=== PATIENT | female | born 1975 | race Two or more races ===

== ENCOUNTER 2021-06-17 09:24 | Emergency (ER) | payer OTHER ==
[2021-06-17 09:44] VITALS: BP 136/85; PULSE 79; TEMP 97.8; BMI 28.3
[2021-06-17] MEDS ORDERED: ACETAMINOPHEN 325 MG TABLET (FP) PO ONE (09:49)
[2021-06-17] MEDS ORDERED: LIDOCAINE 5% TOPICAL PATCH TP ONE (09:57)
[2021-06-17] MEDS ORDERED: ACETAMINOPHEN 325 MG TABLET (FP) ONE (10:17)
[2021-06-17] MEDS ORDERED: LIDOCAINE 5% TOPICAL PATCH ONE (10:18)
[2021-06-17] MEDS ORDERED: KETOROLAC TROMETHAMINE 30 MG/1 ML VIAL IM ONE (12:04)
[2021-06-17] MEDS ORDERED: KETOROLAC TROMETHAMINE 30 MG/1 ML VIAL ONE (12:16)
[2021-06-17] MEDS ORDERED: LIDOCAINE PATCH REMOVAL MC SCH (22:00)
== END 2021-06-17 13:17 | disposition home or self-care (01) ==
LOC: JER 09:24
PROC: 3E0233Z Introduction of Anti-inflammatory into Muscle, Percutaneous Approach (ICD-10-PCS; principal; 2021-06-17)
DX: S00.33XA Contusion of nose, initial encounter (principal); V79.50XA Passenger on bus injured in collision with unspecified motor vehicles in traffic accident, initial encounter
CPT/HCPCS: 70450-TC; 70486-TC; 72125-TC; 99285-25

== ENCOUNTER 2021-06-20 19:16 | Emergency (ER) | payer OTHER ==
[2021-06-20 19:43] VITALS: BP 147/69; PULSE 63; TEMP 97.8; BMI 32.3
[2021-06-20] MEDS ORDERED: KETOROLAC TROMETHAMINE 60 MG/2 ML VIAL IM ONE (22:04)
[2021-06-20] MEDS ORDERED: LIDOCAINE 5% TOPICAL PATCH TP ONE (22:04)
[2021-06-20] MEDS ORDERED: METHOCARBAMOL 500 MG TABLET PO ONE (22:05)
[2021-06-20] MEDS ORDERED: METHOCARBAMOL 500 MG TABLET ONE (22:07)
[2021-06-20] MEDS ORDERED: LIDOCAINE 5% TOPICAL PATCH ONE (22:07)
[2021-06-20] MEDS ORDERED: KETOROLAC TROMETHAMINE 30 MG/1 ML VIAL ONE (22:07)
== END 2021-06-21 00:06 | disposition home or self-care (01) ==
LOC: JERFT 19:16 → JER 19:16 → JERFT 06-21 00:06
PROC: 3E023GC Introduction of Other Therapeutic Substance into Muscle, Percutaneous Approach (ICD-10-PCS; principal; 2021-06-20)
DX: M54.6 Pain in thoracic spine (principal)
CPT/HCPCS: 72128-TC; 84703; 99284-25

== ENCOUNTER 2022-11-04 04:42 | Emergency (ER) | payer OTHER ==
[2022-11-04 04:57] VITALS: TEMP 97.6; BMI 33.2
[2022-11-04] MEDS ORDERED: ACETAMINOPHEN 1000 MG/100 ML BAG IVPB ONE (05:40)
[2022-11-04] MEDS ORDERED: METOCLOPRAMIDE HCL INJECTION 10 MG/2 ML VIAL IVPB ONE (06:03)
[2022-11-04] MEDS ORDERED: SODIUM CHLORIDE 0.9% 500 ML INFUS.BAG IV ONE (06:03)
[2022-11-04 06:37] LABS: BASO % 0.3 % (0-2.0); HEMATOCRIT 41.5 % (32.4-45.2); HEMOGLOBIN 13.7 GM/dL (10.7-15.3); LYMPH % 11.7 % (8-40); MCH 28.4 pg (25.7-33.7); MEAN CELL VOLUME 85.9 fl (80-96); MEAN PLT VOLUME 8.9 fl (7.5-11.1); MONO % 1.7 % (3.8-10.2); NEUT % 86.3 % (42.8-82.8); PLATELET COUNT 356 10^3/uL (134-434); RBC 4.83 M/mm3 (3.60-5.2); RDW 12.1 % (11.6-15.6); WHITE BLOOD COUNT 14.7 K/mm3 (4.0-10.0)
[2022-11-04 06:54] LABS: POTASSIUM 4.6 mmol/L (3.5-5.1)
[2022-11-04 06:55] LABS: CALCIUM 10.5 mg/dL (8.5-10.1)
[2022-11-04 06:57] LABS: ALBUMIN 4.1 g/dl (3.4-5.0); BLOOD UREA NITROGEN 16.9 mg/dL (7-18)
[2022-11-04 07:00] LABS: CREATININE 0.9 mg/dL (0.55-1.3)
[2022-11-04 07:01] LABS: BILIRUBIN,TOTAL 0.3 mg/dL (0.2-1)
[2022-11-04 07:02] LABS: TOT PROT 8.4 g/dl (6.4-8.2)
[2022-11-04] MEDS ORDERED: KETOROLAC TROMETHAMINE 15 MG/ML VIAL IVPUSH ONE (07:12)
[2022-11-04] MEDS ORDERED: KETOROLAC TROMETHAMINE 30 MG/1 ML VIAL IM ONE (07:30)
[2022-11-04] MEDS ORDERED: PANTOPRAZOLE SODIUM 40 MG VIAL IVPUSH ONE (07:30)
[2022-11-04] MEDS ORDERED: PANTOPRAZOLE SODIUM 40 MG VIAL ONE (07:42)
[2022-11-04] MEDS ORDERED: ACETAMINOPHEN INJECTION 100 ML IVPB ONE (07:42)
[2022-11-04] MEDS ORDERED: KETOROLAC TROMETHAMINE 15 MG/ML VIAL ONE (07:42)
[2022-11-04] MEDS ORDERED: METOCLOPRAMIDE HCL INJECTION 10 MG/2 ML VIAL ONE (07:42)
[2022-11-04 09:54] VITALS: BP 129/77; PULSE 94; RESP 18
== END 2022-11-04 09:55 | disposition home or self-care (01) ==
LOC: JER 04:42
PROC: 3E033NZ Introduction of Analgesics, Hypnotics, Sedatives into Peripheral Vein, Percutaneous Approach (ICD-10-PCS; principal; 2022-11-04)
PROC: 3E033GC Introduction of Other Therapeutic Substance into Peripheral Vein, Percutaneous Approach (ICD-10-PCS; 2022-11-04)
PROC: 3E033GC Introduction of Other Therapeutic Substance into Peripheral Vein, Percutaneous Approach (ICD-10-PCS; 2022-11-04)
PROC: 3E033GC Introduction of Other Therapeutic Substance into Peripheral Vein, Percutaneous Approach (ICD-10-PCS; 2022-11-04)
DX: R51.9 Headache, unspecified (principal)
CPT/HCPCS: 36415; 70450-TC; 72125-TC; 80053; 83735; 85025; 99284-25